=== PATIENT | male | born 1950 | race Two or more races ===

== ENCOUNTER 2023-10-17 20:00 | Emergency (ER) | payer OTHER ==
[~2023-10-17] VITALS: Ht 185.4 cm; Wt 73.8 kg
[2023-10-17 20:15] VITALS: BP 105/57; PULSE 85; RESP 18; TEMP 98
[2023-10-17 23:17] VITALS: O2SAT 98
== END 2023-10-18 00:05 | disposition home or self-care (01) ==
LOC: ER 20:00
DX: R33.9 Retention of urine, unspecified (principal); Z88.6 Allergy status to analgesic agent; Z46.6 Encounter for fitting and adjustment of urinary device
CPT/HCPCS: 51702

== ENCOUNTER 2023-10-20 01:15 | Emergency (ER) | payer OTHER ==
[~2023-10-20] VITALS: Ht 185.4 cm; Wt 70.7 kg
[2023-10-20] MEDS ORDERED: VIBE75TA PO (02:40)
[2023-10-20] MEDS: KETOROLAC TROMETH 30 MG/ML 1ML VIAL IM ONE (02:46)
[2023-10-20 03:00] VITALS: PULSE 95; RESP 18; O2SAT 98
[2023-10-20 03:18] LABS: Basophils # (auto) 0 10 ^3/uL (0-0.2); Basophils % (auto) 0.1 % (0.0-2.0); Eosinophils # (auto) 0 10 ^3/uL (0-0.8); Eosinophils % (auto) 0.2 % (0.0-7.0); Hematocrit 47.1 % (41.0-53.0); Hemoglobin 16.1 g/dL (13.5-17.5); Lymphocytes # (auto) 1.2 10 ^3/uL (0.4-5.4); Lymphocytes % (auto) 7.7 % (10.0-50.0); Mean Corpuscular Hgb Conc. 34.1 g/dL (32.0-36.0); Mean Corpuscular Volume 99.5 fL (80.0-100.0); Monocytes # (auto) 0.9 10 ^3/uL (0-1.3); Monocytes % (auto) 5.6 % (0.0-12.0); Neutrophils % (auto) 86.4 % (37.0-80.0); Red Blood Cells 4.73 10^6/uL (4.5-5.90); White Blood Cell 16.2 10^3/uL (4.4-10.8)
[2023-10-20] MEDS: MORPHINE SULFATE 4 MG/ML SYR/VIAL IV ONE ×2 (03:26→05:06)
[2023-10-20] MEDS: ONDANSETRON HCL 4 MG/2 ML VIAL IV ONE (03:26)
[2023-10-20 03:35] LABS: INR 1.03 (0.9-1.15); Prothrombin Time 10.9 sec (9.3-11.8)
[2023-10-20 03:36] LABS: Alanine Aminotransferase 18 U/L (7-40); Albumin 4.3 g/dL (3.2-4.8); Alkaline Phosphatase 57 U/L (46-116); Anion Gap 9 (5-15); Aspartate Aminotransferase 34 U/L (13-40); Bilirubin, Total 1.8 mg/dL (0.2-1.0); Blood Urea Nitrogen 12 mg/dL (9-23); Calcium 9.5 mg/dL (8.7-10.4); Carbon Dioxide 22 mmol/L (20-30); Chloride 104 mmol/L (98-107); Glucose 108 mg/dL (74-106); Potassium 3.9 mmol/L (3.5-5.1); Sodium 135 mmol/L (136-145); Total Protein 7.2 g/dL (5.7-8.2)
[2023-10-20 05:00] VITALS: O2SAT 95
[2023-10-20 05:06] VITALS: BP 133/82; PULSE 120; RESP 22
== END 2023-10-20 06:20 | disposition home or self-care (01) ==
LOC: ER 01:15
DX: T83.021A Displacement of indwelling urethral catheter, initial encounter (principal); E78.5 Hyperlipidemia, unspecified; Z88.6 Allergy status to analgesic agent; Z46.6 Encounter for fitting and adjustment of urinary device
CPT/HCPCS: 36415; 51702; 74176; 80053; 85025; 85610; 96372; 96374; 96375; 96376; 99285; J1885; J2270; J2405